=== PATIENT | male | born 1990 | race Caucasian/White ===

== ENCOUNTER 2017-05-16 16:05 | Emergency (ER) | payer OTHER ==
[~2017-05-16] VITALS: Ht 172.7 cm; Wt 60.0 kg
[~2017-05-16 16:05] MED LIST: CRUTMIS3; PERC5TAB12 PO
[2017-05-16 16:08] VITALS: BP 126/69; PULSE 79; RESP 16; TEMP 98.1; O2SAT 98
--- NOTE | 2017-05-16 16:17 | PD ---
Physical Exam Date Seen by Provider: May 16, 2017 Time Seen by Provider: 16:16 Narrative 26 yo male here for left ankle injury. Cutting concrete a friend dropped a 100 pound piece of concrete on his left foot. Concerned for fracture. Able to ambulate but with obvious limp. Swelling. Pain is 8/10. Vitals are stable in triage. Awaiting bed placement. Data Data Last Documented VS Vital Signs Date Time Temp Pulse Resp B/P Pulse Ox O2 Delivery O2 Flow Rate FiO2 05/16/17 16:08 98.1 79 16 126/69 98 MDM Medical Record Reviewed: Yes Supervised Visit with GRAEME: No Enrike Francisco May 16, 2017 16:17
[2017-05-16] MEDS ORDERED: TETANUS/DIPHTHERIA TOXOID ADULT 0.5 ML VIAL IM ONE (16:30)
--- NOTE | 2017-05-16 16:32 | PD ---
HPI Chief Complaint: Injury Time Seen by Provider: 16:31 Travel History International Travel<30 days: No Contact w/Intl Traveler<30days: No Traveled to known affect area: No History of Present Illness HPI 26-year-old male presents emergency Department with complaint of left ankle and foot pain after his friend dropped a 100 pound piece of concrete on his ankle and foot area. Reports scrapes and cuts to the back of his left ankle area caused by the concrete. Denies being up-to-date on tetanus vaccination. Reports swelling to his ankle and foot. Denies fever, vomiting. Has not taken any medications to alleviate his symptoms. Has applied topical antibiotic ointment to the scrapes. Pain is aggravated with movement, palpation, and walking. Allergic to Augmentin. Has no other medical complaints. No other modifying factors or associated signs and symptoms. PFSH Past Medical History Anxiety: No Depression: No Cancer: No Cardiovascular Problems: No Chemotherapy: No Diminished Hearing: No Endocrine: No Genitourinary: No Immune Disorder: No Musculoskeletal: No Neurologic: No Psychiatric: No Reproductive: No Respiratory: No Immunizations Current: Yes Radiation Therapy: No Seizures: No Sickle Cell Disease: No Past Surgical History Body Medical Devices: Plate in Left forearm Social History Alcohol Use: Yes (occassional) Tobacco Use: Yes (1 PPD) Substance Use: No Allergies-Medications (Allergen,Severity, Reaction): Coded Allergies: Augmentin (Verified Allergy, Intermediate, Rash, 07/23/16) Reported Meds & Prescriptions Reported Meds & Active Scripts Active Ibuprofen 800 Mg Tab 800 Mg PO Q6HR PRN Clindamycin (Clindamycin HCl) 150 Mg Cap 450 Mg PO Q6H 10 Days Crutch Set/Wood/Adult (Misc. Devices) Adult Mis Units Percocet 5-325 mg (Oxycodone/Acetaminophen) 1 Tab 1-2 Tab PO Q4H PRN Review of Systems Except as stated in HPI: all other systems reviewed are Neg Physical Exam Narrative GENERAL: Well-nourished, well-developed male patient, in no acute distress; afebrile, nontoxic-appearing SKIN: Warm and dry. Multiple abrasions noted to the posterior aspect of the left ankle area; no drainage noted. There is surrounding erythema that appears to be consistent with infection. HEAD: Atraumatic. Normocephalic. EYES: Pupils equal and round. No scleral icterus. No injection or drainage. ENT: Mucosa pink and moist. Airway patent. NECK: Trachea midline. CARDIOVASCULAR: Regular rate. RESPIRATORY: No accessory muscle use. GASTROINTESTINAL: Flat. MUSCULOSKELETAL: Left ankle and foot with tenderness on palpation; with erythema , edema; without ecchymosis; no obvious deformity. Left lower extremity supple and nontender 2+ pedal pulses and sensory intact. No obvious deformities. No clubbing. No cyanosis. No edema. NEUROLOGICAL: Awake and alert. Oriented 3. No obvious cranial nerve deficits. Motor grossly within normal limits. Normal speech. PSYCHIATRIC: Appropriate mood and affect; insight and judgment normal. Data Data Last Documented VS Vital Signs Date Time Temp Pulse Resp B/P Pulse Ox O2 Delivery O2 Flow Rate FiO2 05/16/17 16:08 98.1 79 16 126/69 98 Orders Ankle, Complete ([id number]) (05/16/17 16:25) Ice/Cold Pack (05/16/17 16:25) Crutches (05/16/17 16:25) Tetanus/Diphtheria Tox Adult (Tetanus/Di (05/16/17 16:30) Foot, Complete ([id number]) (05/16/17 16:30) Ibuprofen (Motrin) (05/16/17 16:45) MDM Medical Decision Making Medical Screen Exam Complete: Yes Emergency Medical Condition: Yes Medical Record Reviewed: Yes Differential Diagnosis Wound infection, fracture, cellulitis, sprain, contusion Narrative Course 26-year-old male with left ankle and foot injury and erythema noted to the ankle and foot that appears to be consistent with cellulitis secondary to wound infection. Patient is afebrile and nontoxic-appearing. Tetanus updated in the ER. Left ankle and foot x-ray ordered. Ibuprofen, crutches, ice pack ordered. 1705: Left ankle and foot x-ray are unremarkable. Acute wound care provided. John bandage, ankle stirrup splint, and crutches provider for support. I will treat the patient with antibiotics for suspected wound infection. Clindamycin ibuprofen prescribed for home. Instructed patient to follow up with primary care provider. Patient verbalizes understanding and agreement with treatment plan. Patient is medically cleared and stable for discharge. Discussed reasons to return to the emergency department. Patient agrees with treatment plan. The patients vital signs are stable and the patient is stable for outpatient follow-up and treatment. Patient discharged home, stable and in no acute distress. Diagnosis Primary Impression: Left ankle injury Qualified Code: S99.912A - Left ankle injury, initial encounter Additional Impressions: Wound infection Cellulitis of left ankle Referrals: Primary Care Physician Patient Instructions: Acute Wound Care (ED), Ankle Sprain (ED), Crutch Instructions (ED), General Instructions, Wound Infection (ED) Departure Forms: Tests/Procedures, Work Release Enter return to work date: May 25, 2017 Additional Instructions: Antibiotics as prescribed Keep area clean and dry and with antibiotic ointment as directed and as needed for wound care Referred to discharge instructions for acute wound care Crutches for support John bandage for compression and support Ibuprofen or Tylenol as directed and as needed for pain and inflammation Follow-up with primary care provider Return to the emergency department immediately with worsening of symptoms Med/Other Pt SpecificInfo: Prescription(s) given Scripts Ibuprofen 800 Mg [id number] Mg PO Q6HR PRN (PAIN) #30 TAB Ref 0 Prov:Marline Pavon 05/16/17 Clindamycin 150 Mg [id number] Mg PO Q6H 10 Days Ref 0 Prov:Marline Pavon 05/16/17 Disposition: 01 DISCHARGE HOME Condition: Stable Marline Pavon May 16, 2017 16:32
[2017-05-16] MEDS ORDERED: IBUP800T23 PO (16:38)
[2017-05-16] MEDS ORDERED: CLIN1CAP5 PO (16:38)
[2017-05-16] MEDS ORDERED: IBUPROFEN 800 MG TAB PO ONE (16:45)
--- NOTE | 2017-05-16 17:00 | RADRPT ---
EXAM DATE/TIME: 05/16/2017 16:46 [facility] COMPARISON: No previous studies available for comparison. INDICATIONS : Left ankle pain and swelling. A piece of asphalt landed on patients foot and ankle. MEDICAL HISTORY : None. SURGICAL HISTORY : None. ENCOUNTER: Initial ACUITY: 2 days PAIN SCORE: 10/10 LOCATION: Left ankle. FINDINGS: Three view exam was performed of the left ankle. The bony structures are in normal alignment. No ev idence of fracture, dislocation, or soft tissue swelling. The ankle mortise is intact. No radiopaqu e foreign bodies are seen. Bony mineralization is normal. CONCLUSION: No evidence of recent bony injury. Lorenzo Seo MD on May 16, 2017 at 16:58 Board Certified Radiologist. This report was verified electronically.
--- NOTE | 2017-05-16 17:00 | RADRPT ---
EXAM DATE/TIME: 05/16/2017 16:45 [facility] COMPARISON: No previous studies available for comparison. INDICATIONS : Left foot pain and swelling. Patient states a piece of asphalt landed on patients leg. MEDICAL HISTORY : None. SURGICAL HISTORY : ENCOUNTER: Initial ACUITY: 2 days PAIN SCORE: 10/10 LOCATION: Left foot. FINDINGS: Three view examination of the left foot demonstrates no soft tissue swelling, dislocation, or fractur e. The tarsal bones appear intact. The interphalangeal and metatarsophalangeal joints are intact. The calcaneus is intact. Bony mineralization is normal. CONCLUSION: No evidence of recent bony injury. No radiopaque foreign bodies. Lorenzo Seo MD on May 16, 2017 at 16:57 Board Certified Radiologist. This report was verified electronically.
== END 2017-05-16 17:47 | disposition home or self-care (01) ==
LOC: NEPK 16:05
DX: S99.912A Unspecified injury of left ankle, initial encounter (principal); S90.512A Abrasion, left ankle, initial encounter; L08.9 Local infection of the skin and subcutaneous tissue, unspecified; W22.8XXA Striking against or struck by other objects, initial encounter; Z23 Encounter for immunization; F17.200 Nicotine dependence, unspecified, uncomplicated
CPT/HCPCS: 73610; 73630; 90471; 99283; E0113; L1906